=== PATIENT | male | born 1945 | race Caucasian/White ===

== ENCOUNTER → 2016-09-16 | Outpatient (CLI) | payer OTHER | LOC: BHFA 10:00 | PROVIDERS: ATTEND Internal Medicine Cardiovascular Disease | DX: I48.92 Unspecified atrial flutter (principal) ==

== ENCOUNTER → 2018-05-05 | Outpatient (CLI) | payer OTHER | LOC: FIMAGING 09:23 | PROVIDERS: ATTEND Orthopaedic Surgery | DX: Z01.818 Encounter for other preprocedural examination (principal); M17.11 Unilateral primary osteoarthritis, right knee ==

== ENCOUNTER 2018-05-18 10:57 | Inpatient (IN) | payer OTHER ==
--- NOTE | 2018-05-18 06:18 | PDHPUP ---
History & Physical Update H&P update statement: This history and physical update is based on an assessment of the patient which was completed after admission or registration (within 24 hours), but prior to the surgery/procedure. H&P update: H&P reviewed & patient examined, no change in patient's condition since H&P completed
[~2018-05-18 10:57] MED LIST: TRANEXAMIC ACID 3,000 MG/50 ML BAG IRR ONE
[2018-05-18] MEDS ORDERED: FAMOTIDINE 20 MG TAB PO ONE (11:17)
[2018-05-18] MEDS ORDERED: DEXAMETHASONE 4 MG/ML VIAL IVP ONE (11:17)
[2018-05-18] MEDS ORDERED: ceFAZolin 2 GM/DEXTROSE 100 ML IV ONE (11:17)
[2018-05-18] MEDS ORDERED: ACETAMINOPHEN 325 MG TAB PO ONE (11:17)
[2018-05-18] MEDS ORDERED: LR 1,000 ML IV ONE ×2 (11:18→11:43)
[2018-05-18] MEDS ORDERED: BUPIVACAINE/DEXTROSE 7.5MG/ML 2 ML SPINAL AMP SP ONE (11:37)
[2018-05-18] MEDS ORDERED: LIDOCAINE 2% 5 ML SDV ONE (11:37)
[2018-05-18] MEDS ORDERED: ROPIVACAINE HCL 100 MG/20 ML INJ ONE (11:37)
[2018-05-18] MEDS ORDERED: PROPOFOL/EMULSION 500 MG/50 ML BOTTLE IV ONE (11:37)
[2018-05-18] MEDS ORDERED: LIDOCAINE 1% 2 ML INJ ID PRN (11:43)
[2018-05-18] MEDS ORDERED: MIDAZOLAM 2 MG/2 ML VIAL IVP ONE (12:07)
[2018-05-18] MEDS ORDERED: ONDANSETRON 4 MG/2 ML VIAL IVP PRN ×2 (12:08→13:40)
[2018-05-18] MEDS ORDERED: PHENYLEPHRINE HCL 100 MCG/ML SYR IVP PRN (12:08)
[2018-05-18] MEDS ORDERED: MEPERIDINE 25 MG/0.5 ML AMP IVP PRN (12:08)
[2018-05-18] MEDS ORDERED: fentaNYL 100 MCG/2 ML INJ IVP PRN (12:08)
[2018-05-18] MEDS ORDERED: HYDROmorphONE/DILAUDID 2 MG/ML INJ IVP PRN (12:08)
[2018-05-18] MEDS ORDERED: NALOXONE HCL 0.4 MG/ML INJ IVP PRN (12:08)
[2018-05-18] MEDS ORDERED: METOCLOPRAMIDE 10 MG/2 ML VIAL IVP PRN ×2 (12:08→13:40)
[2018-05-18] MEDS ORDERED: PROMETHAZINE HCL 25 MG/ML INJ IVP PRN ×2 (12:08→13:40)
[2018-05-18] MEDS ORDERED: oxyCODONE IR 5 MG TAB PO PRN ×2 (12:08→13:40)
[2018-05-18] MEDS ORDERED: LR 500 ML IV PRN (12:08)
[2018-05-18] MEDS ORDERED: MIDAZOLAM 2 MG/2 ML VIAL ONE (12:51)
--- NOTE | 2018-05-18 12:58 | PDANEPAE ---
ANE Past Medical History - Cardiovascular History Hx Hypertension: Yes Hx Arrhythmias: Yes Hx Chest Pain: No Hx Coronary Artery / Peripheral Vascular Disease: No Hx CHF / Valvular Disease: No Hx Palpitations: No Cardiovascular History Comment: SICK SINUS SYNDROME PACER PLACED 09/2017 - Pulmonary History Hx COPD: No Hx Asthma/Reactive Airway Disease: No Hx Recent Upper Respiratory Infection: No Hx Oxygen in Use at Home: No Hx Sleep Apnea: No Sleep Apnea Screening Result - Last Documented: Positive - Neurologic History Hx Cerebrovascular Accident: No Hx Seizures: No Hx Dementia: No - Endocrine History Hx Diabetes: Yes Endocrine History Comment: NIDDM - Renal History Hx Renal Disorders: No - Liver History Hx Hepatic Disorders: No - Neurological & Psychiatric Hx Hx Neurological and Psychiatric Disorders: No - Cancer History Hx Cancer: Yes Cancer History Comment: MELANOMA LT SHLDR - Congenital Disorder History Hx Congenital Disorders: No - GI History Hx Gastrointestinal Disorders: Yes Gastrointestinal History Comment: GERD - Other Health History Other Health History: OSTEOARTHRITIS. PSEUDO GOUT - Chronic Pain History Chronic Pain: Yes (RT KNEE) - Surgical History Prior Surgeries: LT. SPERMOTOCELECTOMY/EPIDIDYMECTOMY. REMVL MELANOMA LT SHLDR. CAIO CATARACT. LUMBAR DECOMPRESSION. RT KNEE SCOPE X3. APPENDECTOMY ANE Review of Systems Review of Systems: - Exercise capacity METS (RN): 5 METS - Pacemaker Pacemaker Pathology Laboratory Technologist: Keepio Date Pacemaker Last Checked: 07/29/17 ANE Patient History - Allergies Allergies/Adverse Reactions: Eafsxfs-Ook-Ydw Reductase Inhibitor Allergy (Severe, Verified 05/18/18 11:51) Other-Enter Comments - Home Medications Home Medications: Diltiazem Cd [Cardizem ER 120 MG (RX)] 240 mg PO DAILY 10/04/12 [Last Taken ] Folic Acid [Folic Acid 1 MG (RX)] 1 mg PO DAILY 10/04/12 [Last Taken 05/08/18] Herbals/Supplements -Info Only 1 each PO AD 10/04/12 [Last Taken 05/08/18] Omeprazole Magnesium [Prilosec Otc] 20 mg PO DAILY 10/04/12 [Last Taken 10/03/12 ] Telmisartan [Micardis 40 mg (RX)] 80 mg PO DAILY 10/04/12 [Last Taken 05/15/18] sitaGLIPtin PHOSPHATE [Januvia 100 MG (RX)] 100 mg PO DAILY 10/04/12 [Last Taken 05/14/18] Cholecalciferol Vit D3 [Vitamin D3 (*)] 2,000 units PO DAILY 04/29/18 [Last Taken 05/08/18] Diltiazem HCl [Diltiazem 24Hr Cd] 120 mg PO DAILY 04/29/18 [Last Taken 05/14/18] Hydrochlorothiazide [HCTZ (*)] 25 mg PO DAILY 04/29/18 [Last Taken 05/14/18] Rivaroxaban [Xarelto] 20 mg PO DAILY 04/29/18 [Last Taken 05/10/18] - NPO status NPO Since - Liquids (Date): 05/18/18 NPO Since - Liquids (Time): 07:00 NPO Since - Solids (Date): 05/17/18 NPO Since - Solids (Time): 22:00 - Smoking Hx Smoking Status: Never smoked ANE Labs/Vital Signs - Labs Result Diagrams: 05/18/18 12:05 - Vital Signs Blood Pressure: 146/104 Heart Rate: 96 Respiratory Rate: 16 O2 Sat (%): 96 Height: 177.8 cm Weight: 79.379 kg ANE Physical Exam - Airway Neck exam: FROM Mallampati Score: Class 1 Mouth exam: normal dental/mouth exam - Pulmonary Pulmonary: no respiratory distress, no rales or rhonchi, clear to auscultation - Cardiovascular Cardiovascular: no murmur, rub, or gallop, irregularly irregular - ASA Status ASA Status: III ANE Anesthesia Plan Anesthesia Plan: spinal Regional Anesthesia: single shot NB
--- NOTE | 2018-05-18 12:58 | POSTANESTH ---
Post Anesthetic Evaluation Cardiovascular Status: Normal, Stable Respiratory Status: Normal, Stable Level of Consciousness/Mental Status: Can Participate in Eval Pain Control: Adequate, Prn Tx Ordered Nausea/Vomiting Control: Adequate, Prn Tx Ordered Complications Possibly Related to Anesthesia: None Noted
[2018-05-18] MEDS ORDERED: ROPIVACAINE 0.2% 80 MG, EPINEPHrine 0.2 MG, KETOROLAC TROMETHAMINE 30 MG in SYRINGE 0 ML IU ONE (13:00)
[2018-05-18] MEDS ORDERED: TRANEXAMIC ACID 3,000 MG in NS (SYRINGE) 50 ML IRR ONE (13:00)
[2018-05-18] MEDS ORDERED: TEMAZEPAM 15 MG CAP PO PRN (13:40)
[2018-05-18] MEDS ORDERED: diphenhydrAMINE 25 MG CAP PO PRN (13:40)
[2018-05-18] MEDS ORDERED: ONDANSETRON DISINTEGRATING 4 MG TAB PO PRN (13:40)
[2018-05-18] MEDS ORDERED: POLYETHYLENE GLYCOL 3350 17 GM PKT PO PRN (13:40)
[2018-05-18] MEDS ORDERED: DIPHENOXYLATE/ATROPINE LOMOTIL 1 TAB PO PRN (13:40)
[2018-05-18] MEDS ORDERED: BISACODYL 10 MG SUPP PR PRN (13:40)
[2018-05-18] MEDS ORDERED: MAGNESIUM HYDROXIDE 30 ML UDCUP PO PRN (13:40)
[2018-05-18] MEDS ORDERED: CYCLOBENZAPRINE 10 MG TAB PO PRN (13:40)
[2018-05-18] MEDS ORDERED: PROMETHAZINE HCL 25 MG SUPPR PR PRN (13:40)
[2018-05-18] MEDS ORDERED: LACTULOSE 20 GM/30 ML UDCUP PO PRN (13:40)
[2018-05-18] MEDS ORDERED: LR 1,000 ML IV SCH (14:00)
--- NOTE | 2018-05-18 14:44 | POSTOPPROG ---
Post Op Note Date of Operation: 05/18/18 Surgeon: Paulo Cordoba Cyber Analyst: Irene Cadet Anesthesiologist: CAMILA Anesthesia: Spinal Pre-op Diagnosis: R knee DJD Post-op Diagnosis: same Indication: pain Procedure: R TKA with robot Findings: DJD knee Inf/Abcess present in the surg proc area at time of surgery?: No EBL: 50-100
[2018-05-18] MEDS: ceFAZolin 2 GM/DEXTROSE 100 ML IV SCH (20:31)
[2018-05-18] MEDS: SENNOSIDES/DOCUSATE SODIUM TAB PO SCH (20:31)
[2018-05-18] MEDS: FAMOTIDINE 20 MG TAB PO SCH (20:31)
[2018-05-18] MEDS: ACETAMINOPHEN 325 MG TAB PO SCH (20:31)
--- NOTE | 2018-05-18 23:10 | PDMN ---
Medical Necessity Medical necessity: Pt meets IP criteria as of 05/18/2018 per and [facility] [place]-[facility] ( TKA); est los > 2 mn for management of chronic conditions including afib on a/c and pseudogout as well as pain control s/p TKA.
[2018-05-19] MEDS: ACETAMINOPHEN 325 MG TAB PO SCH ×3 (04:03→13:11)
[2018-05-19] MEDS: ceFAZolin 2 GM/DEXTROSE 100 ML IV SCH (04:07)
[2018-05-19] MEDS: FAMOTIDINE 20 MG TAB PO SCH (08:55)
[2018-05-19] MEDS: SENNOSIDES/DOCUSATE SODIUM TAB PO SCH (08:56)
[2018-05-19 09:00] VITALS: BP 148/104
[2018-05-19] MEDS ORDERED: RIVAROXABAN 20 MG TAB PO SCH (09:00)
[2018-05-19] MEDS ORDERED: DILTIAZEM CD 120 MG CAP PO SCH ×2 (09:00)
[2018-05-19] MEDS ORDERED: HYDROCHLOROTHIAZIDE 25 MG TAB PO SCH (09:00)
[2018-05-19] MEDS ORDERED: TELMISARTAN 40 MG TAB PO SCH (09:00)
--- NOTE | 2018-05-19 12:20 | ASMTLACE ---
LACE Length of stay for Answers: 2 days current admission Acuity / Level of Answers: Yes Care: Did the patient have an inpatient admission? Comorbidities - select Answers: Diabetes (uncontrolled or all that apply controlled) Opioid dependence / Chronic pain Other Notes: HTN; GERD # of Emergency department Answers: 0 visits in the last 6 months Score: 11 Date Signed: 05/19/2018 12:19 PM Electronically Signed By:DAYRON Perera
--- NOTE | 2018-05-19 13:40 | SOAPPROG ---
SOAP Progress Note Assessment/Plan: Assessment: Patient is doing well POD 1 s/p RTKA Pain management: pain is well controlled on oral pain meds. VTE ppx: recommend 81 mg aspirin morning and evening for 4 weeks, cont IMMANUEL and SCDs Anemia: level is expected initially postop. Asymptomatic. Continue to monitor Moderate drainage on dressing- pressure dressing applied D/c planning:patient has done much better than anticipated. Patient is stable, BP stable, pain well controlled and patient is eager for discharge to home. August d/c to home today pending release from PT Plan: 05/19/18 13:40 Subjective: No nausea, vomiting, chest pain or shortness of breath. Pain well-controlled Objective: Vital Signs Temp Pulse Resp BP Pulse Ox 36.4 C 106 H 16 148/104 H 90 L 05/19/18 08:00 05/19/18 08:55 05/19/18 08:00 05/19/18 08:55 05/19/18 08:00 Laboratory Results 05/19/18 04:29 05/18/18 12:05 05/18/18 05/19/18 05/20/18 05:59 05:59 05:59 Intake Total 2054 Output Total 750 700 Balance 1305 -700 RLE: moderate drainage on incision dressing, NVI, positive PF/DF ICD10 Worksheet Patient Problems: Problems Problem Status Onset Atrial fibrillation and flutter Active Bradycardia Active Syncope Active Primary osteoarthritis of right knee Acute
--- NOTE | 2018-05-19 17:06 | GOP ---
[f rep st] OPERATIVE REPORT DATE OF OPERATION: 05/18/2018 SURGEON: Dima Cordoba MD SUCTION PLATE CARRIER CLEANER: HUSSAIN Donis ANESTHESIA: Spinal. PREOPERATIVE DIAGNOSIS: Right knee osteoarthritis. POSTOPERATIVE DIAGNOSIS: Right knee osteoarthritis. PROCEDURE PERFORMED: Right total knee arthroplasty with computer navigation, robotic assist. FINDINGS: ESTIMATED BLOOD LOSS: 30 mL. INDICATIONS: The patient is a 72-year-old male with severe and progressive pain and deformity of the right knee unresponsive to conservative care. The risks and benefits of surgical intervention were explained in detail. DESCRIPTION OF PROCEDURE: The patient was brought to the operative room and placed on the table in t he supine position. Spinal anesthesia was induced without difficulty. A pneumatic tourniquet was appl ied about the right proximal thigh, and the leg was prepped and draped in a sterile fashion. The leg treviño was applied. After exsanguination by elevation the tourniquet was inflated to 250 mmHg. Incision was made anterior medial from the tibial tuberosity to a point 2 cm proximal to the superior pole of the patella. Medial parapatellar arthrotomy was carried out from the superior pole of the pa tella and posteriorly in line with the fibers of the Type II VMO. The medial collateral ligament was elevated and the infrapatellar fat pad was resected. The patella was everted and the articular surface was excised. A 40 mm patellar button was placed. Attention was turned first to the distal aspect of the femur. After exposure of the femur, 2 half pi ns were placed for fixation of the femoral array. In a similar fashion, 2 pins were placed anteromed ial on the tibia for fixation of the tibial array. External land marking and registration of the hip center was performed without difficulty. Internal femoral and tibial registration was carried out w ithout difficulty and the femoral and tibial checkpoints were placed and verified for accuracy. Attention was turned to the femur. The foot print for the size 7 femoral component was cut with the saw using the Qwilt robotic system and verified for accuracy against the CT based plan. In a similar f ashion, the saw was used to cut the footprint for the size 7 tibial component using the Qwilt system an d verified for accuracy against the CT based plan. The tibial articular surface was excised without d ifficulty, followed by the intercondylar box cut. The knee was extended and the remnants of the medial and lateral meniscus were excised. The posterior capsule was injected with ropivacaine, epinephrine and Toradol. A size 7 tibial tray was positioned . Trial reduction was then carried out. There was excellent range of motion, alignment, and stability using the 7 x 9 mm polyethylene. All trials were then removed. The joint was thoroughly irrigated and carefully dried. The Press-fit c omponents were implanted. The permanent 7 x 9 mm polyethylene was placed without difficulty. The tourniquet was deflated and all bleeders were coagulated. The wound was thoroughly irrigated and closed using interrupted sutures of 2-0 Vicryl for the joint capsule. The subcu was closed with 3-0 V icryl and the skin with 4-0 Monocryl. Dermabond and Steri-Strips were applied followed by a compress janis dressing. The patient was then moved from the operating room to the recovery room in good conditi on, having tolerated the procedure well. PATHOLOGY: Severe tri-compartment osteoarthritis. /[id number]/MODL
== END 2018-05-19 13:13 | disposition home or self-care (01) | DRG 470 ==
LOC: F3N 10:57 → OBSVTOIN 13:45 → F3N 18:26
PROVIDERS: ADMIT Orthopaedic Surgery; ATTEND Orthopaedic Surgery
DX: M17.11 Unilateral primary osteoarthritis, right knee (principal); I10 Essential (primary) hypertension; E11.9 Type 2 diabetes mellitus without complications; K21.9 Gastro-esophageal reflux disease without esophagitis; Z95.0 Presence of cardiac pacemaker; Z85.820 Personal history of malignant melanoma of skin
CPT/HCPCS: 97116-GP; 97161-GP; J0171; J0690; J1100; J1885; J2250; J2704; J2795